=== PATIENT | male | born 1980 | race Caucasian/White ===

== ENCOUNTER 2018-12-26 15:58 | Emergency (ER) | payer BC ==
[~2018-12-26] VITALS: Ht 185.4 cm; Wt 90.7 kg
--- NOTE | 2018-12-26 16:37 | Emergency Room Report ---
History of Present Illness General Chief Complaint: Laceration Source: Patient Present Illness HPI 38 YO Male presents to the ED c/o needing a wound re-check of his laceration which is in the process of healing by secondary intent which he sustained 1 month ago. pt. states he believes his tdap is UTD within the last 10 years. denies bleeding, erythema, warmth or discharge form the site of the laceration. Pt. reports that initially there was a significant amount of bleeding and he used some powder that is used to stop bleeding. He went to the Urgent Care the next morning and was evaluated and told he is not a candidate for sutures as he applied the foreign material the day prior. Pt. states over the course of 1 month it has been healing. He states the edges of the blood stop powder have begun to rise. He denies pain. Denies fevers or chills. Allergies: Coded Allergies: No Known Allergies (Unverified , 12/26/18) Patient History Past Medical History: see triage record Past Surgical History: none Pertinent Family History: none Immunizations: UTD Reviewed Nursing Documentation: PMH: Agreed; PSxH: Agreed Nursing Documentation-PMH Past Medical History: No Stated History Review of Systems All Other Systems: negative except mentioned in HPI Physical Exam Vital Signs Date Time Temp Pulse Resp B/P (MAP) Pulse Ox O2 Delivery O2 Flow Rate FiO2 12/26/18 16:08 98.6 78 20 129/86 (100) 97 Room Air Sp02 EP Interpretation: reviewed, normal General Appearance: no apparent distress, alert, GCS 15, non-toxic Head: normocephalic, atraumatic Eyes: bilateral eye normal inspection, bilateral eye PERRL ENT: hearing grossly normal, normal voice Neck: full range of motion Respiratory: chest non-tender, lungs clear, normal breath sounds, speaking full sentences Cardiovascular #1: regular rate, rhythm, normal capillary refill Musculoskeletal: back normal, gait/station normal, normal range of motion, non- tender Neurologic: alert, oriented x3, responsive, motor strength/tone normal, sensory intact, speech normal, grossly normal Psychiatric: judgement/insight normal Skin: normal color, no rash, warm/dry, well hydrated, wd healing/no infection noted - 1 cm right thumb laceration to the lateral aspect is healing by secondary intent, there is some foreign material medially which is begining to slough off. no erythema, no warmth. skin is slightly macerated due to occlusive dressing that was previously applied by the pt Lymphatic: no adenopathy Medical Decision Making PA Attestation Dr. Garvin is my supervising Physician whom patient management has been discussed with. Diagnostic Impression: Primary Impression: Visit for wound check ER Course Pt. presents to the ED c/o needing a wound re-check of his laceration which is in the process of healing by secondary intent which he sustained 1 month ago. pt. states he believes his tdap is UTD within the last 10 years. denies bleeding , erythema, warmth or discharge form the site of the laceration. Pt. reports that initially there was a significant amount of bleeding and he used some powder that is used to stop bleeding. He went to the Urgent Care the next morning and was evaluated and told he is not a candidate for sutures as he applied the foreign material the day prior. Pt. states over the course of 1 month it has been healing. He states the edges of the blood stop powder have begun to rise. He denies pain. Denies fevers or chills. Ddx considered but are not limited to laceration, tendon injury, cellulitis, dehiscence. Vital signs: are WNL, pt. is afebrile H&PE are most consistent with: healing laceration of the right thumb by secondary intent with some retained foreign material ( blood stop powder) ORDERS: none required at this time, the diagnosis is clinical ED INTERVENTIONS: - the wound was cleaned, and excess foreign material was gently wiped off. no evidence of infection, no bleeding. DISCHARGE: At this time pt. is stable for d/c to home. Will provide printed patient care instructions, and any necessary prescriptions. Care plan and follow up instructions have been discussed with the patient prior to discharge. Last Vital Signs Date Time Temp Pulse Resp B/P (MAP) Pulse Ox O2 Delivery O2 Flow Rate FiO2 12/26/18 16:08 98.6 78 20 129/86 (100) 97 Room Air Status: improved Disposition: HOME, SELF-CARE Condition: Stable Patient Instructions: Nonsutured Laceration Care, Wound Check Additional Instructions: Take any previously prescribed medications as directed. Follow up with a Primary Care Provider in 3-5 days, even if your symptoms have resolved. Return sooner to ED if new symptoms occur, or current symptoms become worse. - Please note that this Emergency Department Report was dictated using [employer] professional technology software, occasionally this can lead to erroneous entry secondary to interpretation by the dictation equipment. Denise Johnson December 26, 2018 16:37
--- NOTE | 2018-12-26 16:40 | NUR ---
ER DISCHARGE NOTE: Patient is cleared to be discharged per ERMD, pt is aox4, on room air, with stable vital signs. pt was given dc and prescription instructions, pt was able to verbalize understanding, pt is able to ambulate with steady gait. pt took all belongings.
[2018-12-26 17:28] VITALS: BP 129/86
[2018-12-26 17:29] VITALS: BP 129/86
== END 2018-12-26 16:40 | disposition home or self-care (01) ==
LOC: EMR 16:30
DX: S61.011D Laceration without foreign body of right thumb without damage to nail, subsequent encounter (principal); X58.XXXD Exposure to other specified factors, subsequent encounter; Z48.01 Encounter for change or removal of surgical wound dressing
CPT/HCPCS: 99281